=== PATIENT | female | born 1940 | race Hispanic/Latino ===

== ENCOUNTER 2017-03-06 08:52 | Day surgery (SDC) | payer MEDICARE, OTHER ==
--- NOTE | 2017-03-06 07:28 | CP.SDSHP ---
Same Day Surgery H & P - History Proposed Procedure: colonoscopy Pre-Op Diagnosis: hematochezia. constipation - Previous Medical/Surgical History Cardiac: Hypertension (hyperlipidemia, ) Neuro: Other (anxiety, ) Previous Surgical History: knee surgery - Allergies Allergies: Allergies FISH Allergy (Unverified 04/02/13 09:33) - Physical Exam Mental Status: Alert & Oriented x3 Neuro: WNL Heart: WNL Lungs: WNL GI: WNL - Impression Impression: hematochezia. constipation Pt. Evaluated Today:Candidate for Anesthesia & Procedure: Yes - Date & Time Date: 03/06/17 Time: 07:28 Short Stay Discharge - Short Stay Discharge Admitting Diagnosis/Reason for Visit: GASTROINTESTINAL HEMORRHOIDS,IBS, CONSTIPATION Disposition: HOME/ ROUTINE
[2017-03-06 09:42] VITALS: BMI 30.2
[2017-03-06] MEDS ORDERED: Lidocaine Hydrochloride 5 ML INJ ONE (09:44)
[2017-03-06] MEDS ORDERED: Propofol 10 mg/ml Inj (20 ML) ONE (09:44)
[2017-03-06 10:05] VITALS: TEMP 97.5
[2017-03-06] MEDS ORDERED: Lactated Ringer's 500 ML IV SCH (10:15)
[2017-03-06 11:15] VITALS: O2SAT 99
[2017-03-06 11:30] VITALS: BP 124/78; PULSE 67; RESP 17
== END 2017-03-06 11:28 | disposition home or self-care (01) ==
LOC: C.ENDO 08:52
PROVIDERS: ATTEND Internal Medicine Gastroenterology
DX: D12.2 Benign neoplasm of ascending colon (principal); K59.00 Constipation, unspecified; K64.8 Other hemorrhoids
CPT/HCPCS: 45388; 88305; 88313; J2704; J7120

== ENCOUNTER 2017-11-09 12:27 | Emergency (ER) | payer MEDICARE, OTHER ==
[2017-11-09 12:28] VITALS: BMI 30.2
[2017-11-09 12:55] VITALS: O2SAT 96
[2017-11-09 14:24] LABS: SQUAMOUS EPITHIAL < 1 /hpf (0-5); URINE BILIRUBIN NEGATIVE (NEGATIVE); URINE BLOOD NEGATIVE (NEGATIVE); URINE CLARITY Clear (Clear); URINE COLOR Yellow (YELLOW); URINE GLUCOSE (UA) NORMAL (Normal); URINE LEUKOCYTE ESTERASE 1+ Leu/uL (Negative); URINE NITRATE NEGATIVE (NEGATIVE); URINE PROTEIN NEGATIVE (NEGATIVE); URINE UROBILINOGEN NORMAL mg/dL (0.2-1.0)
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
[2017-11-09 15:07] VITALS: BP 167/82; PULSE 95; RESP 18; TEMP 97.8
== END 2017-11-09 15:12 | disposition home or self-care (01) ==
LOC: C.ER 12:27
DX: B35.6 Tinea cruris (principal); E78.00 Pure hypercholesterolemia, unspecified; I10 Essential (primary) hypertension